=== PATIENT | female | born 1950 | race Caucasian/White ===

== ENCOUNTER 2017-08-05 09:55 | Outpatient (CLI) | payer OTHER ==
[~2017-08-05] VITALS: Ht 157.5 cm; Wt 74.4 kg
[~2017-08-05 09:55] MED LIST: CIPRO500 MG PO; DICLOFENAC POTA50 MG PO; FLAGYL500MG PO; GILTUSS TR TAB1 EACH PO; HYZAAR 100/25 T1 TAB PO; IBUPROFEN800 MG PO; LEVSIN/SL0.125 MG PO; LIPITOR20 MG PO; METFORMIN HCL1000 MG PO; NORFLEX100MG PO; NORVASC5 MG PO; ORPH100T PO; TESSALON PERLE100 MG PO; ULTRACET PO; ZANTAC300 MG PO; ZOVIRAX400 MG; ZYRTEC10 MG PO; [UNRECOGNIZED DRUG - OTHER] PO
== END 2017-08-05 10:15 | disposition home or self-care (01) ==
LOC: OFIC 805 09:55
DX: H90.42 Sensorineural hearing loss, unilateral, left ear, with unrestricted hearing on the contralateral side (principal); H93.13 Tinnitus, bilateral

== ENCOUNTER 2018-04-21 11:29 | Outpatient (CLI) | payer OTHER | END 2018-04-21 11:38 | disposition home or self-care (01) | LOC: RAD 11:29 | DX: M12.9 Arthropathy, unspecified (principal); M19.90 Unspecified osteoarthritis, unspecified site ==

== ENCOUNTER 2020-11-27 12:13 | Emergency (ER) | payer OTHER ==
[~2020-11-27] VITALS: Ht 157.5 cm; Wt 87.5 kg
== END 2020-11-27 18:54 | disposition home or self-care (01) ==
LOC: ER 12:13
DX: R10.32 Left lower quadrant pain (principal)